=== PATIENT | male | born 1945 | race Caucasian/White ===

== ENCOUNTER → 2017-02-21 | Outpatient (CLI) | payer MEDICARE, OTHER | LOC: OPSV 07:51 → CT 11:00 | DX: D51.8 Other vitamin B12 deficiency anemias (principal); M79.89 Other specified soft tissue disorders; R18.8 Other ascites; E86.0 Dehydration | CPT/HCPCS: 36415; 71260; 82565; 84520; 96360; 96361; J7030; J7050; Q9962 ==